=== PATIENT | female | born 1985 | race Asian ===

== ENCOUNTER 2017-09-03 15:13 | Emergency (ER) | payer MEDICAID ==
[~2017-09-03] VITALS: Ht 149.9 cm; Wt 105.2 kg
[2017-09-03 15:40] VITALS: Ht 149.9 cm; Wt 105.2 kg
[2017-09-03 18:23] VITALS: BP 142/74
== END 2017-09-03 18:23 | disposition home or self-care (01) ==
LOC: ED 15:13
DX: J06.9 Acute upper respiratory infection, unspecified (principal); J01.00 Acute maxillary sinusitis, unspecified

== ENCOUNTER 2017-09-12 10:08 | Emergency (ER) | payer MEDICAID ==
[~2017-09-12] VITALS: Ht 149.9 cm; Wt 105.7 kg
[2017-09-12 10:19] VITALS: Ht 149.9 cm; Wt 105.7 kg
[2017-09-12 11:03] VITALS: BP 128/71
== END 2017-09-12 12:50 | disposition home or self-care (01) ==
LOC: ED 10:08
DX: J45.909 Unspecified asthma, uncomplicated (principal); R51 Headache
CPT/HCPCS: J7512; J7613; J7644

== ENCOUNTER 2017-10-14 09:09 | Emergency (ER) | payer MEDICAID ==
[~2017-10-14] VITALS: Ht 149.9 cm; Wt 106.1 kg
[2017-10-14 09:19] VITALS: Ht 149.9 cm; Wt 106.1 kg
[2017-10-14 10:34] LABS: BASOPHIL % 0.3 % (0-2)
[2017-10-14 10:36] LABS: CALCIUM 8.7 mg/dL (8.5-10.1); CARBON DIOXIDE 26.9 mmol/L (21-32); CHLORIDE SERUM 101 mmol/L (98-107); CREATININE SERUM 0.6 mg/dL (0.6-1.0); GFR1 > 60 mL/min; GLUCOSE SERUM 100 mg/dL (74-106); POTASSIUM SERUM 3.7 mmol/L (3.5-5.1); SODIUM SERUM 137 mmol/L (136-145)
[2017-10-14 10:37] LABS: PLATELET COUNT 473 x10^3mcL (130-400); RED CELL DISTRIBUTION WIDTH 15.8 % (11.5-14.5)
[2017-10-14 10:38] LABS: rbc morphology (normal/abnorm) ABNORMAL (NORMAL)
[2017-10-14 10:41] LABS: ALBUMIN 3.7 g/dL (3.4-5.0); ALKALINE PHOSPHATASE 85 U/L (46-116); ALT/SGPT 18 U/L (14-59); AST/SGOT 11 U/L (15-37); BILIRUBIN TOTAL 0.4 mg/dL (0.20-1.00); LIPASE 70 IU/L (73-393); TOTAL PROTEIN, SERUM 8.3 g/dL (6.4-8.2)
[2017-10-14 13:20] VITALS: BP 127/78
== END 2017-10-14 15:19 | disposition home or self-care (01) ==
LOC: ED 09:09
PROVIDERS: Emergency Medicine
DX: R10.11 Right upper quadrant pain (principal); R11.0 Nausea; R03.0 Elevated blood-pressure reading, without diagnosis of hypertension; J45.909 Unspecified asthma, uncomplicated
CPT/HCPCS: J1885; J2405; Q0092

== ENCOUNTER 2018-02-09 12:59 | Emergency (ER) | payer MEDICAID ==
[~2018-02-09] VITALS: Ht 149.9 cm; Wt 109.3 kg
[2018-02-09 13:17] VITALS: Ht 149.9 cm; Wt 109.3 kg
[2018-02-09 15:00] VITALS: BP 141/83
== END 2018-02-09 15:00 | disposition home or self-care (01) ==
LOC: ED 12:59
DX: J02.9 Acute pharyngitis, unspecified (principal); J45.909 Unspecified asthma, uncomplicated; E66.9 Obesity, unspecified

== ENCOUNTER 2018-05-08 13:08 | Emergency (ER) | payer MEDICAID ==
[~2018-05-08] VITALS: Ht 149.9 cm; Wt 109.8 kg
[2018-05-08 13:13] VITALS: BP 142/77; Ht 149.9 cm; Wt 109.8 kg
== END 2018-05-08 16:50 | disposition home or self-care (01) ==
LOC: ED 13:08
DX: G44.209 Tension-type headache, unspecified, not intractable (principal); J45.909 Unspecified asthma, uncomplicated; R11.0 Nausea; H53.8 Other visual disturbances
CPT/HCPCS: J1885

== ENCOUNTER 2019-01-08 07:57 | Emergency (ER) | payer BC ==
[~2019-01-08] VITALS: Ht 152.4 cm; Wt 115.7 kg
[2019-01-08 08:06] VITALS: Ht 152.4 cm; Wt 115.7 kg
[2019-01-08 11:14] VITALS: BP 118/74
== END 2019-01-08 11:14 | disposition home or self-care (01) ==
LOC: ED 07:57
DX: J20.9 Acute bronchitis, unspecified (principal); G89.29 Other chronic pain; M25.561 Pain in right knee; J45.909 Unspecified asthma, uncomplicated

== ENCOUNTER 2019-01-10 05:35 | Emergency (ER) | payer BC ==
[~2019-01-10] VITALS: Ht 160 cm; Wt 116.6 kg
[2019-01-10 05:46] VITALS: Ht 160 cm; Wt 116.6 kg
[2019-01-10 06:24] VITALS: BP 128/100
== END 2019-01-10 06:24 | disposition home or self-care (01) ==
LOC: ED 05:35
DX: J20.8 Acute bronchitis due to other specified organisms (principal); Z76.0 Encounter for issue of repeat prescription
CPT/HCPCS: J1100

== ENCOUNTER 2019-01-17 17:53 | Inpatient (IN) | payer BC ==
[~2019-01-17] VITALS: Ht 152.4 cm; Wt 115.2 kg
[2019-01-17 18:01] VITALS: Ht 152.4 cm; Wt 115.2 kg
[2019-01-17 18:44] LABS: PLATELET COUNT 493 x10^3mcL (130-400); RED CELL DISTRIBUTION WIDTH 17.5 % (11.5-14.5)
[2019-01-17 18:47] LABS: ALBUMIN 3.6 g/dL (3.4-5.0); ALKALINE PHOSPHATASE 89 U/L (46-116); ALT/SGPT 29 U/L (14-59); AMYLASE 42 U/L (25-115); AST/SGOT 16 U/L (15-37); BILIRUBIN TOTAL 0.8 mg/dL (0.20-1.00); CARBON DIOXIDE 30.9 mmol/L (21-32); CHLORIDE SERUM 103 mmol/L (98-107); CREATININE SERUM 0.8 mg/dL (0.6-1.0); GFR1 > 60 mL/min; GLUCOSE SERUM 143 mg/dL (74-106); LIPASE 46 IU/L (73-393); POTASSIUM SERUM 4.5 mmol/L (3.5-5.1); SODIUM SERUM 141 mmol/L (136-145); TOTAL PROTEIN, SERUM 7.6 g/dL (6.4-8.2)
[2019-01-17 19:08] LABS: CALCIUM 8.8 mg/dL (8.5-10.1)
[2019-01-17 19:30] LABS: BAND NEUTROPHIL 10 % (0-10); METAMYELOCTE 2 % (0-2); MONOCYTE 3 % (0-7); SEGMENTED NEUTROPHILS 77 % (37-75)
[2019-01-17 19:32] LABS: rbc morphology (normal/abnorm) ABNORMAL (NORMAL)
[2019-01-17] MEDS ORDERED: ALBUTEROL1.25 MG/3 (22:13)
[2019-01-17 23:08] LABS: MAGNESIUM 1.9 mg/dL (1.8-2.4); PHOSPHOROUS 2.8 mg/dL (2.5-4.9)
[2019-01-17 23:12] LABS: CHOLESTEROL/HDL RATIO 2.6
[2019-01-18 00:15] VITALS: BP 102/47
[2019-01-18 05:30] VITALS: BP 107/65
[2019-01-18 08:00] LABS: CALCIUM 8.1 mg/dL (8.5-10.1); CHLORIDE SERUM 106 mmol/L (98-107); CREATININE SERUM 0.7 mg/dL (0.6-1.0); GFR1 > 60 mL/min; GLUCOSE SERUM 92 mg/dL (74-106); POTASSIUM SERUM 3.7 mmol/L (3.5-5.1); SODIUM SERUM 140 mmol/L (136-145)
[2019-01-18 09:10] LABS: BASOPHIL % 0.3 % (0-2)
[2019-01-18 09:15] LABS: PLATELET COUNT 412 x10^3mcL (130-400); RED CELL DISTRIBUTION WIDTH 17.5 % (11.5-14.5)
[2019-01-18 09:42] VITALS: BP 93/41
[2019-01-18 11:30] VITALS: BP 106/52
[2019-01-18 17:25] VITALS: BP 113/56
[2019-01-18 19:30] LABS: UA SPECIFIC GRAVITY <=1.005 (1.005-1.035); microscopic required? YES; urine erythrocyte 2+ (NEGATIVE)
[2019-01-18 20:07] LABS: AMPHETAMINE QUAL UR NONE DETECTED (See below)
[2019-01-18 20:53] VITALS: BP 103/68
[2019-01-19 05:55] VITALS: BP 98/49
[2019-01-19 06:56] LABS: CALCIUM 8.6 mg/dL (8.5-10.1); CARBON DIOXIDE 25.8 mmol/L (21-32); CHLORIDE SERUM 109 mmol/L (98-107); CREATININE SERUM 0.7 mg/dL (0.6-1.0); GFR1 > 60 mL/min; GLUCOSE SERUM 110 mg/dL (74-106); SODIUM SERUM 143 mmol/L (136-145)
[2019-01-19 07:12] LABS: BASOPHIL % 0.3 % (0-2)
[2019-01-19 07:13] LABS: PLATELET COUNT 413 x10^3mcL (130-400); RED CELL DISTRIBUTION WIDTH 17.3 % (11.5-14.5); rbc morphology (normal/abnorm) ABNORMAL (NORMAL)
[2019-01-19] MEDS ORDERED: CIPRO500 MG PO (08:23)
[2019-01-19] MEDS ORDERED: LAC PO (08:23)
[2019-01-19 09:08] VITALS: BP 94/39
[2019-01-19 09:56] VITALS: BP 94/39
== END 2019-01-19 13:10 | disposition home or self-care (01) | DRG 690 ==
LOC: ED 17:53 → MU 22:19
PROVIDERS: Specialist; ADMIT Family Medicine
DX: N10 Acute pyelonephritis (principal); Z68.42 Body mass index [BMI] 45.0-49.9, adult; E78.5 Hyperlipidemia, unspecified; E66.01 Morbid (severe) obesity due to excess calories; Z98.891 History of uterine scar from previous surgery; J45.909 Unspecified asthma, uncomplicated; Z82.49 Family history of ischemic heart disease and other diseases of the circulatory system; Z83.3 Family history of diabetes mellitus; Z84.89 Family history of other specified conditions
CPT/HCPCS: 83880; J0694; J0744; J1885; J2270; J2405; J2543; J3010; J3490; J7030; Q0092

== ENCOUNTER 2019-03-24 16:22 | Emergency (ER) | payer SELFPAY ==
[~2019-03-24] VITALS: Ht 152.4 cm; Wt 113.4 kg
[~2019-03-24 16:22] MED LIST: ALBUTEROL1.25 MG/3; CIPRO500 MG PO; LAC PO
[2019-03-24 16:26] VITALS: Ht 152.4 cm; Wt 113.4 kg
[2019-03-24 17:35] LABS: BASOPHIL % 0.3 % (0-2); PLATELET COUNT 397 x10^3mcL (130-400)
[2019-03-24 17:37] LABS: RED CELL DISTRIBUTION WIDTH 16.9 % (11.5-14.5)
[2019-03-24 18:21] LABS: microscopic required? YES; urine erythrocyte 3+ (NEGATIVE)
[2019-03-24 19:33] VITALS: BP 133/90
== END 2019-03-24 19:33 | disposition home or self-care (01) ==
LOC: ED 16:22
PROVIDERS: Emergency Medicine
DX: N76.0 Acute vaginitis (principal); N92.0 Excessive and frequent menstruation with regular cycle; J45.909 Unspecified asthma, uncomplicated; Z98.890 Other specified postprocedural states
CPT/HCPCS: 36415; 87491; 87591; Q0092